=== PATIENT | male | born 1995 | race Hispanic/Latino ===

== ENCOUNTER 2020-07-24 18:43 | Emergency (ER) | payer OTHER ==
[2020-07-25 05:21] LABS: SARS-CoV-2 PCR by NAA Not Detected (NotDetected)
== END 2020-07-24 19:25 | disposition home or self-care (01) ==
LOC: BURERS 18:43
DX: J06.9 Acute upper respiratory infection, unspecified (principal); Z20.822 Contact with and (suspected) exposure to COVID-19
CPT/HCPCS: 87635; 99283; U0003; U0005